=== PATIENT | female | born 1995 | race Caucasian/White ===

== ENCOUNTER 2016-08-30 19:13 | Inpatient (IN) | payer OTHER ==
[2016-08-30 20:01] LABS: HCT 35.6 % (37.0-47.0); HGB 12.2 g/dl (12.5-16.0); MCH 29.5 pg (25.0-31.0); MCHC 34.3 g/dL (32.0-36.0); RBC 4.14 M/uL (4.20-5.40); RDW 14.2 % (11.5-14.0); WBC 15.1 K/uL (4.0-10.5)
[2016-08-30 20:05] LABS: BILIRUBIN NEGATIVE (NEGATIVE); BLOOD NEGATIVE Ery/uL (NEGATIVE); CLARITY CLEAR (CLEAR); COLOR YELLOW (YELLOW); GLUCOSE (U) NORMAL (NORMAL); KETONE (U) TRACE mg/dL (NEGATIVE); LEUKOCYTES NEGATIVE Leu/uL (NEGATIVE); NITRITE NEGATIVE (NEGATIVE); PROTEIN NEGATIVE (NEGATIVE); SPECIFIC GRAVITY 1.025 (1.001-1.030); UROBILINOGEN 0.2 mg/dL (0.2-1.0); pH 6.5 (5.0-9.0)
[2016-08-30 20:20] LABS: ALBUMIN 3.8 g/dL (3.5-5.0); BILIRUBIN - TOTAL 0.3 mg/dL (0.1-1.0); CREATININE 0.5 mg/dL (0.5-1.0); GLOBULIN (CALCULATION) 2.1 g/dL (2.2-4.2); POTASSIUM 3.9 mmol/L (3.5-5.1); TOTAL PROTEIN 5.9 g/dL (6.4-8.3)
[2016-09-01 11:53] LABS: HCT 26.7 % (37.0-47.0); HGB 8.8 g/dl (12.5-16.0); MCH 29.3 pg (25.0-31.0); MPV 9.4 fL (6.0-9.5); RDW 14.4 % (11.5-14.0); WBC 18.3 K/uL (4.0-10.5)
== END 2016-09-03 11:28 | disposition home or self-care (01) | DRG 765 ==
LOC: FOB 19:13
PROVIDERS: ADMIT Obstetrics & Gynecology
PROC: 4A1HX4Z Monitoring of Products of Conception, Cardiac Electrical Activity, External Approach (ICD-10-PCS; 2016-08-30)
PROC: 3E0P7GC Introduction of Other Therapeutic Substance into Female Reproductive, Via Natural or Artificial Opening (ICD-10-PCS; 2016-08-31)
PROC: 10907ZC Drainage of Amniotic Fluid, Therapeutic from Products of Conception, Via Natural or Artificial Opening (ICD-10-PCS; 2016-08-31)
PROC: 10D00Z1 Extraction of Products of Conception, Low, Open Approach (ICD-10-PCS; principal; 2016-09-01)
DX: O36.63X0 Maternal care for excessive fetal growth, third trimester, not applicable or unspecified (principal); O10.92 Unspecified pre-existing hypertension complicating childbirth; D62 Acute posthemorrhagic anemia; O99.214 Obesity complicating childbirth; Z68.41 Body mass index [BMI] 40.0-44.9, adult; O62.1 Secondary uterine inertia; Z3A.39 39 weeks gestation of pregnancy; Z37.0 Single live birth; O34.211 Maternal care for low transverse scar from previous cesarean delivery; N85.8 Other specified noninflammatory disorders of uterus; E66.9 Obesity, unspecified; E03.9 Hypothyroidism, unspecified; O99.02 Anemia complicating childbirth
CPT/HCPCS: 36415; 80053; 81003; J0456; J0690; J1885; J2274; J2300; J3010

== ENCOUNTER 2020-07-07 07:00 | Inpatient (IN) | payer OTHER ==
[2020-07-07 08:06] LABS: HGB 12.3 g/dl (12.5-16.0); MCH 29.4 pg (25.0-31.0); MCHC 33.2 g/dL (32.0-36.0); MCV 88.3 fL (78.0-100.0); MPV 9.7 fL (6.0-9.5); RBC 4.19 M/uL (4.20-5.40); RDW 13.3 % (11.5-14.0); WBC 13.7 K/uL (4.0-10.5)
[2020-07-07 10:43] LABS: BILIRUBIN NEGATIVE (NEGATIVE); BLOOD NEGATIVE Ery/uL (NEGATIVE); CLARITY CLEAR (CLEAR); COLOR YELLOW (YELLOW); GLUCOSE (U) NORMAL (NORMAL); LEUKOCYTES NEGATIVE Leu/uL (NEGATIVE); NITRITE NEGATIVE (NEGATIVE); PROTEIN NEGATIVE (NEGATIVE); SPECIFIC GRAVITY 1.025 (1.001-1.030); pH 6.5 (5.0-9.0)
[2020-07-08 05:40] LABS: HCT 31.4 % (37.0-47.0); HGB 10.2 g/dl (12.5-16.0); MCH 29.6 pg (25.0-31.0); MCHC 32.5 g/dL (32.0-36.0); MPV 9.6 fL (6.0-9.5); RBC 3.45 M/uL (4.20-5.40); RDW 13.4 % (11.5-14.0); WBC 15.3 K/uL (4.0-10.5)
== END 2020-07-09 13:14 | disposition home or self-care (01) | DRG 786 ==
LOC: FOB 07:00
PROVIDERS: ADMIT Obstetrics & Gynecology
PROC: 10D00Z1 Extraction of Products of Conception, Low, Open Approach (ICD-10-PCS; principal; 2020-07-07 09:00)
DX: O34.211 Maternal care for low transverse scar from previous cesarean delivery (principal); U07.1 COVID-19; O10.92 Unspecified pre-existing hypertension complicating childbirth; O98.52 Other viral diseases complicating childbirth; D62 Acute posthemorrhagic anemia; Z3A.38 38 weeks gestation of pregnancy; Z37.0 Single live birth; O99.284 Endocrine, nutritional and metabolic diseases complicating childbirth; E03.9 Hypothyroidism, unspecified; O99.214 Obesity complicating childbirth; E66.9 Obesity, unspecified; O90.81 Anemia of the puerperium; D50.9 Iron deficiency anemia, unspecified; Z79.82 Long term (current) use of aspirin; Z79.899 Other long term (current) drug therapy
CPT/HCPCS: 36415; 81003; 86850; 86900; 86901; 90707; J0456; J0690; J1885; J2274; J2370; J2405; J3010; J7050; J7120; U0002